=== PATIENT | female | born 1975 | race Hispanic/Latino ===

== ENCOUNTER → 2024-09-03 | Day surgery (SDC) | payer OTHER ==
[~2024-09-03] MED LIST: BROMOCRIPTINE2.5 MG PO; FENTANYL CITRATE/PF 100MCG/2 ML INJ ONE; GLUCAGON FOR INJ 1 MG VIAL ONE; HYOSCYAMINE SULFATE 0.5 MG/ML INJ ONE; KETAMINE 50MG/5ML SYR ONE; LACTATED RINGER'S 1,000 ML ONE; LIDOCAINE HCL 2% LOCAL INJ 5 ML SDV VIAL INJ ONE; LISINOPRIL/HCTZ PO; METFORMIN HCL500 MG PO; PROPOFOL IV EMULSION 10 MG/ML 20 ML VIAL ONE; PROPOFOL IV EMULSION 50 ML IV ONE; ZESTRIL2.5 MG PO
[2024-09-03] MEDS: LACTATED RINGER'S 1,000 ML BAG IV ONE (08:34)
[2024-09-03 09:49] VITALS: TEMP 97.6
[2024-09-03 10:20] VITALS: BP 110/77; PULSE 89; RESP 18; O2SAT 99
== END | disposition home or self-care (01) ==
LOC: OR 08:03
PROVIDERS: ATTEND Internal Medicine Gastroenterology
DX: Z12.11 Encounter for screening for malignant neoplasm of colon (principal); K63.5 Polyp of colon; K31.7 Polyp of stomach and duodenum; K29.50 Unspecified chronic gastritis without bleeding; B96.81 Helicobacter pylori [H. pylori] as the cause of diseases classified elsewhere; K20.90 Esophagitis, unspecified without bleeding; K22.89 Other specified disease of esophagus; K31.89 Other diseases of stomach and duodenum; K21.9 Gastro-esophageal reflux disease without esophagitis; K59.09 Other constipation; K64.8 Other hemorrhoids; Z71.3 Dietary counseling and surveillance; I10 Essential (primary) hypertension; Z71.89 Other specified counseling; E11.9 Type 2 diabetes mellitus without complications; E66.9 Obesity, unspecified; J30.2 Other seasonal allergic rhinitis; Z01.810 Encounter for preprocedural cardiovascular examination; Z79.84 Long term (current) use of oral hypoglycemic drugs; Z79.899 Other long term (current) drug therapy; Z68.36 Body mass index [BMI] 36.0-36.9, adult
CPT/HCPCS: 43239; 45380; 45385; 93005; J1610; J1980; J2003; J2470; J2704 ×2; J3010; J7121